=== PATIENT | male | born 1965 | race Asian ===

== ENCOUNTER 2017-01-27 23:25 | Emergency (ER) | payer OTHER ==
[~2017-01-27] VITALS: Ht 170.2 cm; Wt 56.5 kg
[2017-01-27 23:29] VITALS: Ht 170.2 cm; Wt 56.5 kg
[2017-01-28] MEDS ORDERED: morphine 4 MG/ML VIAL IV STA (01:03)
[2017-01-28] MEDS ORDERED: ONDANSETRON 4 MG INJ IV STA (01:03)
[2017-01-28 01:41] LABS: BASOPHIL # 0.1 10^3/ul (0.0-0.1); BASOPHILS % 1.2 % (0.0-2.0); EOSINOPHILS # 0.2 10^3/ul (0.0-0.5); EOSINOPHILS % 3.8 % (0.0-7.0); HEMATOCRIT 46.4 % (42.0-52.0); HEMOGLOBIN 15.6 g/dl (14.0-18.0); LYMPHOCYTES # 1.9 10^3/ul (0.8-2.9); LYMPHOCYTES % 32.3 % (15.0-51.0); MEAN CORPUSCULAR HEMOGLOBIN 31.7 pg (29.0-33.0); MEAN CORPUSCULAR HGB CONC 33.6 g/dl (32.0-37.0); MEAN CORPUSCULAR VOLUME 94.3 fl (82.0-101.0); MEAN PLATELET VOLUME 10.7 fl (7.4-10.4); MONOCYTE # 0.4 10^3/ul (0.3-0.9); MONOCYTES % 7.2 % (0.0-11.0); NEUTROPHIL # 3.3 10^3/ul (1.6-7.5); NEUTROPHILS % 55.3 % (39.0-77.0); PLATELET COUNT 114 10^3/UL (140-415); POSITIVE DIFF @See below; RED BLOOD COUNT 4.92 10^6/ul (4.70-6.10); RED CELL DISTRIBUTION WIDTH 12.5 % (11.5-14.5); WHITE BLOOD COUNT 5.9 10^3/ul (4.8-10.8)
[2017-01-28 01:55] LABS: ADD UMIC NO; UR ASCORBIC ACID NEGATIVE (NEGATIVE); UR BILIRUBIN (Dip) NEGATIVE (NEGATIVE); UR BLOOD (Dip) NEGATIVE (NEGATIVE); UR CLARITY CLEAR (CLEAR); UR COLOR YELLOW (YELLOW); UR GLUCOSE (Dip) NEGATIVE (NEGATIVE); UR KETONES (Dip) NEGATIVE (NEGATIVE); UR LEUKOCYTE ESTERASE (Dip) NEGATIVE Leu/ul (NEGATIVE); UR NITRITE (Dip) NEGATIVE (NEGATIVE); UR SPECIFIC GRAVITY (Dip) 1.014 (1.003-1.030); UR TOTAL PROTEIN (Dip) NEGATIVE (NEGATIVE); UR UROBILINOGEN (Dip) 1+ mg/dL (NEGATIVE)
[2017-01-28 01:57] LABS: PROTIME 13.2 Sec (12.2-14.2)
[2017-01-28 01:58] LABS: PARTIAL THROMBOPLASTIN TIME 36.3 Sec (25.0-35.0)
[2017-01-28 02:06] LABS: ALBUMIN 4.2 g/dl (3.3-4.9); ALBUMIN/GLOBULIN RATIO 1.23; BILIRUBIN,INDIRECT 0.1 mg/dl (0-1.1); BILIRUBIN,TOTAL 0.1 mg/dl (0.2-1.3); CALCIUM 9.2 mg/dl (8.4-10.2); CREATININE 0.81 mg/dl (0.61-1.24); POTASSIUM 3.6 mmol/L (3.5-5.1); TOTAL PROTEIN 7.6 g/dl (6.1-8.1)
--- NOTE | 2017-01-28 02:16 | RADRPT ---
PROCEDURE: CT abdomen and pelvis without intravenous contrast. CLINICAL INDICATION: Pain. TECHNIQUE: CT of the abdomen/pelvis was performed utilizing axial images with reconstructions in s agittal and coronal planes. The administered radiation dose is CTDI 4.6 mGy, DLP 260 mGy-cm. One or more of the following dose reduction techniques were used: automated exposure control, adjustment of the mA and/or kV according to patient size and/or use of iterative reconstruction technique. COMPARISON: No pertinent prior examinations were submitted for comparison. FINDINGS: Visualized Chest: Some coronary artery calcifications are noted. Abdomen: The liver, spleen, pancreas, gallbladder,and adrenal glands are unremarkable. The kidneys are without hydronephrosis. No definite urinary calculi are seen. There is no evidence of bowel obstruction. The appendix is normal. No intra-abdominal free air is seen. There is no evidence of intra-abdominal adenopathy or free fluid. Vascular calcifications are noted within the aorta and its branches. Pelvis: There is no evidence of pelvic adenopathy or free fluid. The prostate and bladder are unremarkable. Osseous structures: Unremarkable. IMPRESSION: No acute findings. RPTAT: HIKT .Rob Villatoro MD, Date Time Electronically viewed and signed by .Rob Villatoro MD, on 01/28/2017 02:16 .T/
--- NOTE | 2017-01-28 02:20 | ERD ---
ER Documentation Chief Complaint Date/Time DATE: 01/28/17 TIME: 02:19 Chief Complaint diffuse belly pain x 2weeks,hx liver cirrhosis HPI This is a 51-year-old male with diffuse abdominal pain for 2 weeks on and off and localizing to the epigastric region. No nausea no vomiting no chills. Pain is burning in sensation epigastric location with no exacerbating relieving factors. No fevers no chills. No other current issues. ROS All systems reviewed and are negative except as per history of present illness. Medications Home Meds No Active Prescriptions or Reported Meds Allergies Allergies: Coded Allergies: No Known Allergy (Unverified , 01/27/17) PMhx/Soc Medical and Surgical Hx: pt denies Surgical Hx Hx Miscellaneous Medical Probl: Yes (Liver Cirrhosis) Hx Alcohol Use: Yes (x 2 beers daily) Hx Substance Use: No Hx Tobacco Use: Yes Smoking Status: Current every day smoker Physical Exam Vitals Vital Signs Date Time Temp Pulse Resp B/P Pulse Ox O2 Delivery O2 Flow Rate FiO2 01/27/17 23:29 97.9 73 18 139/73 99 Physical Exam Const: [] Head: Atraumatic Eyes: Normal Conjunctiva ENT: Normal External Ears, Nose and Mouth. Neck: Full range of motion..~ No meningismus. Resp: Clear to auscultation bilaterally Cardio: Regular rate and rhythm, no murmurs Abd: Soft, non tender, non distended. Normal bowel sounds Skin: No petechiae or rashes Back: No midline or flank tenderness Ext: No cyanosis, or edema Neur: Awake and alert Psych: Normal Mood and Affect Result Diagram: 01/28/1713001/28/17130 Results 24 hrs Laboratory Tests Test 01/28/17 01:31 White Blood Count 5.910^3/ul Red Blood Count 4.9210^6/ul Hemoglobin 15.6g/dl Hematocrit 46.4% Mean Corpuscular Volume 94.3fl Mean Corpuscular Hemoglobin 31.7pg Mean Corpuscular Hemoglobin Concent 33.6g/dl Red Cell Distribution Width 12.5% Platelet Count 48058^3/UL Mean Platelet Volume 10.7fl Neutrophils % 55.3% Lymphocytes % 32.3% Monocytes % 7.2% Eosinophils % 3.8% Basophils % 1.2% Nucleated Red Blood Cells % 0.0/100WBC Neutrophils # 3.310^3/ul Lymphocytes # 1.910^3/ul Monocytes # 0.410^3/ul Eosinophils # 0.210^3/ul Basophils # 0.110^3/ul Nucleated Red Blood Cells # 0.010^3/ul Prothrombin Time 13.2Sec Prothrombin Time Ratio 1.0 INR International Normalized Ratio 1.00 Activated Partial Thromboplast Time 36.3Sec Urine Color YELLOW Urine Clarity CLEAR Urine pH 7.0 Urine Specific Alfred 1.014 Urine Ketones NEGATIVEmg/dL Urine Nitrite NEGATIVEmg/dL Urine Bilirubin NEGATIVEmg/dL Urine Urobilinogen 1+mg/dL Urine Leukocyte Esterase NEGATIVELeu/ul Urine Hemoglobin NEGATIVEmg/dL Urine Glucose NEGATIVEmg/dL Urine Total Protein NEGATIVEmg/dl Sodium Level 140mmol/L Potassium Level 3.6mmol/L Chloride Level 102mmol/L Carbon Dioxide Level 30mmol/L Anion Gap 12 Blood Urea Nitrogen 16mg/dl Creatinine 0.81mg/dl Glucose Level 109mg/dl Calcium Level 9.2mg/dl Total Bilirubin 0.1mg/dl Direct Bilirubin 0.00mg/dl Indirect Bilirubin 0.1mg/dl Aspartate Amino Transf (AST/SGOT) 56IU/L Alanine Aminotransferase (ALT/SGPT) 75IU/L Alkaline Phosphatase 117IU/L Total Protein 7.6g/dl Albumin 4.2g/dl Globulin 3.40g/dl Albumin/Globulin Ratio 1.23 Lipase 100U/L Current Medications Medications (Trade) Dose Ordered Sig/Maria Dolores Route PRN Reason Start Time Stop Time Status Last Admin Dose Admin Morphine Sulfate (morphine) 4 mg ONCE STAT IV 01/28/17 01:03 01/28/17 01:05 DC 01/28/17 01:36 Ondansetron HCl (Zofran Inj) 4 mg ONCE STAT IV 01/28/17 01:03 01/28/17 01:05 DC 01/28/17 01:36 Procedures/MDM Medical decision-makin-year-old gentleman with epigastric abdominal pain consistent with gastritis. No evidence of surgical abdomen on exam and no evidence of osseous on CAT scan. At this point clinically stable for outpatient management. Patient will be discharged home. Return in 8 hours for serial abdominal exams. Departure Diagnosis: Primary Impression: Abdominal pain Abdominal location: epigastric Qualified Code: R10.13 - Epigastric pain Condition: Stable MALLORY ALVARADO Jan 28, 2017 02:20
[2017-01-28] MEDS ORDERED: RANI150T9 PO (02:21)
[2017-01-28 03:00] VITALS: BP 135/89; PULSE 58; RESP 18; TEMP 97.4
== END 2017-01-28 03:03 | disposition home or self-care (01) ==
LOC: E/R 23:25
DX: R10.13 Epigastric pain (principal); F17.210 Nicotine dependence, cigarettes, uncomplicated
CPT/HCPCS: 36415; 74176; 80053; 81003; 83690; 85025; 85610; 85730; 96374; 96375; J2270; J2405; Z7502

== ENCOUNTER 2017-08-16 13:08 | Day surgery (SDC) | END 2017-08-16 16:20 | disposition home or self-care (01) ==

== ENCOUNTER 2017-10-29 12:50 | Day surgery (SDC) | END 2017-10-29 16:52 | disposition home or self-care (01) ==